=== PATIENT | female | born 1980 | race Caucasian/White ===

== ENCOUNTER 2024-09-18 23:40 | Emergency (ER) | payer OTHER ==
[~2024-09-18] VITALS: Ht 165.1 cm; Wt 68.2 kg
[2024-09-19 00:48] LABS: BASOPHILS % (AUTO) 0.7 % (0.0-2.0); EOSINOPHILS % (AUTO) 0.1 % (1.0-6.0); HEMATOCRIT 39.5 % (36-46); HEMOGLOBIN 13.2 g/dL (12.0-16.0); LYMPHOCYTES # (AUTO) 0.4 K/uL (1.0-4.8); LYMPHOCYTES % (AUTO) 2.9 % (22.0-44.0); MEAN CORPUSCULAR HEMOGLOBIN 31.4 pg (26.0-34.0); MEAN CORPUSCULAR HGB CONC 33.5 G/dL (31.0-37.0); MEAN CORPUSCULAR VOLUME 94 fL (80-100); MONOCYTES # (AUTO) 0.4 K/uL (0.1-1.0); NEUTROPHILS # (AUTO) 11.7 K/uL (1.8-7.7); PLATELET COUNT (AUTO) 279 K/uL (150-450); RED BLOOD CELL COUNT(AUTO) 4.21 MIL/uL (4.00-5.20); RED CELL DISTRIBUTION WIDTH 12.8 % (11.5-14.5); WHITE BLOOD COUNT (AUTO) 12.6 K/uL (4.5-11.0)
[2024-09-19 00:54] LABS: NEUTROPHILS % (AUTO) 93.3 % (40.0-70.0)
[2024-09-19 01:02] LABS: ANION GAP 13 mmol/L (8-16); CALCIUM, TOTAL 8.7 mg/dL (8.8-10.5); CARBON DIOXIDE 23 mmol/L (22-29); CHLORIDE 103 mmol/L (98-107); CREATININE 0.68 mg/dL (0.60-1.30); GLOMERULAR FILTR. RATE CALC > 60 mL/min (>60); GLUCOSE,RANDOM 132 mg/dL (70-110); POTASSIUM 3.7 mmol/L (3.5-5.1); SODIUM SERUM 139 mmol/L (136-145); UREA NITROGEN, BLOOD 16 mg/dL (7-18)
[2024-09-19] MEDS: ONDANSETRON HCL 4 MG/2 ML VIAL IVP ONE (01:08)
[2024-09-19] MEDS: SODIUM CHLORIDE 0.9% 1,000 ML IV ONE (01:08)
[2024-09-19 01:10] LABS: ALBUMIN 3.6 g/dL (3.4-5.0); BILIRUBIN,DIRECT 0.1 mg/dL (0.00-0.20); BILIRUBIN,TOTAL 0.3 mg/dL (0.1-1.0); TOTAL PROTEIN, SERUM 7.6 g/dL (6.4-8.2)
[2024-09-19 01:15] LABS: TROPONIN I-HIGH SENSITIVITY 11 ng/L (<51)
[2024-09-19] MEDS ORDERED: ONDA-104 PO (02:25)
[2024-09-19] MEDS ORDERED: DIPH-1130 PO (02:25)
[2024-09-19] MEDS ORDERED: ACET-66 PO (02:25)
[2024-09-19] MEDS: DIPHENOXYLATE/ATROP 2.5-0.025 MG TABLET PO ONE (02:36)
[2024-09-19] MEDS: ACETAMINOPHEN 500 MG TABLET PO ONE (02:36)
[2024-09-19 02:46] VITALS: BP 122/69; PULSE 88; RESP 15; TEMP 99.3; O2SAT 98
== END 2024-09-19 02:47 | disposition home or self-care (01) ==
LOC: EMS 23:41
DX: K52.9 Noninfective gastroenteritis and colitis, unspecified (principal); R53.1 Weakness; R11.10 Vomiting, unspecified
CPT/HCPCS: 99285; 71045; 80048; 80076; 84484; 85025; 36415; 93005; 96374; 96361; J2405; J7030; 96365